=== PATIENT | female | born 1980 | race Two or more races ===

== ENCOUNTER 2020-06-02 07:13 | Outpatient (CLI) | payer OTHER | END 2020-06-02 07:20 | disposition home or self-care (01) | LOC: SONOGRAMA 07:13 | PROVIDERS: ATTEND General Practice | DX: M77.11 Lateral epicondylitis, right elbow (principal); R21 Rash and other nonspecific skin eruption; Z13.89 Encounter for screening for other disorder; Z13.220 Encounter for screening for lipoid disorders; Z11.3 Encounter for screening for infections with a predominantly sexual mode of transmission; M25.521 Pain in right elbow; E66.8 Other obesity ==

== ENCOUNTER 2021-12-30 11:03 | Outpatient (CLI) | payer OTHER | END 2021-12-30 11:22 | disposition home or self-care (01) | LOC: MAMO-SONO 11:03 | PROVIDERS: ATTEND Specialist | DX: Z12.31 Encounter for screening mammogram for malignant neoplasm of breast (principal); N63.0 Unspecified lump in unspecified breast; N92.6 Irregular menstruation, unspecified; E04.9 Nontoxic goiter, unspecified ==

== ENCOUNTER 2024-08-06 14:39 | Emergency (ER) | payer OTHER ==
[~2024-08-06] VITALS: Ht 160 cm; Wt 86.2 kg
[2024-08-06 17:35] LABS: HEMATOCRIT 41.2 % (36.0-45.00); HEMOGLOBIN 13.8 g/dL (12.0-15.00); MEAN CELL VOLUME 81.8 fL (80.00-100.00); MEAN CORPUSCULAR HEMOGLOBIN 27.3 pg (27.00-32.0); MEAN CORPUSCULAR HGB CONC 33.4 g/dl (32.0-36.0); PLATELET COUNT 318 K/uL (150-450); RED BLOOD COUNT 5.04 M/uL (4.00-6.00); RED CELL DISTRIBUTION WIDTH 13.8 % (11.5-14.5)
[2024-08-06 17:52] LABS: CALCIUM 9.4 mg/dL (8.5-10.1); CREATININE SERUM 0.69 mg/dL (0.55-1.02); GFR 92.86; POTASSIUM 4.05 mEq/L (3.5-5.1)
== END 2024-08-06 19:34 | disposition home or self-care (01) ==
LOC: ER 14:42
PROVIDERS: Emergency Medicine
DX: M94.0 Chondrocostal junction syndrome [Tietze] (principal); M51.369 Other intervertebral disc degeneration, lumbar region without mention of lumbar back pain or lower extremity pain; M62.830 Muscle spasm of back

== ENCOUNTER 2024-09-24 10:43 | Emergency (ER) | payer OTHER ==
[~2024-09-24] VITALS: Ht 160 cm; Wt 83.9 kg
[2024-09-24] MEDS ORDERED: CEFTRIAXONE SODIUM 1,000 MG VIAL IM STA (12:43)
== END 2024-09-24 12:49 | disposition home or self-care (01) ==
LOC: ER 10:44
DX: J06.9 Acute upper respiratory infection, unspecified (principal)

== ENCOUNTER 2024-12-19 07:16 | Outpatient (CLI) | payer OTHER | END 2024-12-19 07:21 | disposition home or self-care (01) | LOC: TOM 07:16 | PROVIDERS: ATTEND General Practice | DX: R59.0 Localized enlarged lymph nodes (principal); N63.0 Unspecified lump in unspecified breast; K86.89 Other specified diseases of pancreas; R10.9 Unspecified abdominal pain; R10.2 Pelvic and perineal pain ==